=== PATIENT | female | born 1960 | race Caucasian/White ===

== ENCOUNTER 2016-09-06 10:24 | Emergency (ER) | payer OTHER ==
[2016-09-06 11:02] VITALS: BP 159/80
--- NOTE | 2016-09-06 12:10 | UC ---
Lower Extremity/Ankle HPI - HPI Summary HPI Summary: 56 female presents with complaints of left foot pain and rash that has been ongoing for the past month. Patient has had left foot discomfort since her fall 1 year ago that has increased after walking strenuously while traveling [place]. Patient states she was using the [place] equivalent to Asper cream on her foot to help with the discomfort. She states she was not applying it appropriately and developed a rash 3 days ago. Patient was using it multiple times daily in significant amounts. Patient complains today of rash being red, itchy, pustules with associated swelling. Denies fever/chills. Pain in foot is on the lateral and top side that is worse with walking. Is able to bear weight. A few day ago she did hear a popping sound in her foot. Denies any other complaints, ankl/ knee pain, numbness/tingling and discharge at this time. - History of Current Complaint Chief Complaint: UCLowerExtremity Stated Complaint: RASH FOOT INJURY Hx Obtained From: Patient ?: No Onset/Duration: Sudden Onset, Lasting Weeks - months, Still Present, Worse Since Severity Initially: Mild Severity Currently: Moderate Pain Intensity: 6 Pain Scale Used: 0-10 Numeric Aggravating Factor(s): Standing, Ambulation Alleviating Factor(s): Rest Able to Bear Weight: Yes - Allergies/Home Medications Allergies/Adverse Reactions: Allergies Allergy/AdvReac Type Severity Reaction Status Date / Time novocaine Allergy Severe Anaphylatic Uncoded 07/14/12 09:02 Shock tincture of benzoin Allergy Severe Rash Uncoded 07/14/12 09:02 codeine Allergy Unknown Unknown Uncoded 07/14/12 09:03 Reaction Details PMH/Surg Hx/FS Hx/Imm Hx Endocrine History Of: Denies: Diabetes, Thyroid Disease Cardiovascular History Of: Reports: Hypertension Denies: Cardiac Disorders Respiratory History Of: Denies: COPD, Asthma GI/ History Of: Denies: Ulcer - Surgical History Surgical History: Yes Surgery Procedure, Year, and Place: supra cervical hysterectomy 2003. scheduled for laproscopy for bilat collaped fallopian tubes/ovaries 07/18/12 - Family History Known Family History: Positive: Hypertension - Social History Alcohol Use: None Substance Use Type: None Smoking Status (MU): Never Smoked Tobacco - Immunization History Vaccination Up to Date: Yes Review of Systems Constitutional: Negative Skin: Rash Respiratory: Negative Cardiovascular: Negative Gastrointestinal: Negative Motor: Negative Neurovascular: Negative Musculoskeletal: Arthralgia, Edema, Myalgia Neurological: Negative All Other Systems Reviewed And Are Negative: Yes Physical Exam Triage Information Reviewed: Yes Appearance: Well-Appearing, No Pain Distress, Well-Nourished Vital Signs: Initial Vital Signs Temp 98 F 09/06/16 10:55 Pulse 78 09/06/16 10:55 Resp 18 09/06/16 10:55 BP 159/80 09/06/16 10:55 Pulse Ox 99 09/06/16 10:55 BP elevated. Patient was encouraged to follow up with PCP within the next 2 weeks. Patient already being treated for HTN. Vital Signs Reviewed: Yes Eyes: Positive: Conjunctiva Clear ENT: Positive: Normal ENT inspection, Hearing grossly normal Neck: Positive: Supple, Nontender, No Lymphadenopathy Respiratory: Positive: Chest non-tender, Lungs clear, Normal breath sounds, No respiratory distress, No accessory muscle use. Negative: Crackles, Rhonchi, Stridor, Wheezing Cardiovascular: Positive: RRR, No Murmur, Pulses Normal - 2+ pedal b/l, Brisk Capillary Refill Musculoskeletal: Positive: Strength Intact, ROM Intact, Edema @ - left foot 1+ minimal, no pitting, pain on palpation of lateral foot and anterior top of foot throughout. Over ATFL tenderness, Other: - negative santiago test, achilles tendon intact. no open sore or wounds, no crepitus, step off or obvious deformity. Neurological Exam: Normal Neurological: Positive: Alert, Muscle Tone Normal - sensation intact Psychological Exam: Normal Skin: Positive: rashes - erythematous, raised rash resembling irritation resembling a burn/versus uritcaria, pustular areas only overing top anterior portion of foot wear topical cream was applied. no discharge, no sign of infectious etiology, no concern for emmy or fungal infection. bottom of foot and toes normal skin exam. Diagnostics - Radiology left foot x-ray Xray Interpretation: No Acute Changes - There are no acute bony findings. The articular relationships are maintained. The soft tissues are normal. There is a plantar calcaneal spur. Radiology Interpretation Completed By: Radiologist Lower Extremity Course/Dx - Course Course Of Treatment: x-ray obtained to rule out any fractures or arthritis in foot and was negative. patient was told to stop using topical "Asper-like" cream on foot. Keep clean and dry. Benedryl and vasoline. Take NSAID for foot pain tendonitits/sprain. Offerend brace however patient stated she has one. Follow up with PCP for further imagining. Apply cool compresses on foot however not directly on skin. Aware of worsening signs and symptoms. Rest and elevate foot. Recheck BP with PCP within 2 weeks - Differential Dx/Diagnosis Differential Diagnosis/HQI/PQRI: Arthritis, Burn, Cellulitis, Compartment Syndrome, Contusion, Dislocation, Fracture (Closed), Gout, Sprain, Strain, Tendonitis, Other Provider Diagnoses: uritcaria reaction to topical cream, left foot pain, left foot sprain Discharge - Discharge Plan Condition: Stable Disposition: HOME Patient Education Materials: Urticaria (ED), Tendinitis (ED) Referrals: Puja Little MD [Primary Care Provider] - Additional Instructions: Stop applying topical creams on your foot. Let air out, keep clean and dry. Try taking Benedryl at bedtime to help with swelling and rash. Take naproxen for the next 5-7 days for the foot pain and inflammation. Rest and elevate your foot. Cool compresses not directly on the skin, over a sock or towel. Follow up with your primary care provider also to re-check BP within 2 weeks. If symptoms worsen or do not improve please seek medical attention or return here.
--- NOTE | 2016-09-06 12:48 | RAD ---
INDICATION: Left foot pain COMPARISON: None TECHNIQUE: AP, lateral, and oblique views were obtained. FINDINGS: There are no acute bony findings. The articular relationships are maintained. The soft tissues are normal. There is a plantar calcaneal spur. IMPRESSION: NO ACUTE BONY CHANGE.
== END 2016-09-06 13:30 | disposition home or self-care (01) ==
LOC: UCEAST 10:24
DX: L50.0 Allergic urticaria (principal); M77.52 Other enthesopathy of left foot and ankle; M79.672 Pain in left foot; I10 Essential (primary) hypertension; Z88.4 Allergy status to anesthetic agent; Z88.5 Allergy status to narcotic agent
CPT/HCPCS: 99211; G0463

== ENCOUNTER 2017-09-23 17:33 | Emergency (ER) | payer OTHER ==
[2017-09-23 17:55] VITALS: BP 152/96
--- NOTE | 2017-09-23 18:13 | UC ---
Skin Complaint HPI - HPI Summary HPI Summary: 57 y/o male presents to the urgent care c/o Tick bite yesterday on top of head 09/20/17. Left upper arm bit yesterday, pulled off. - History of Current Complaint Chief Complaint: UCLowerExtremity Time Seen by Provider: 09/23/17 18:11 Stated Complaint: TICK BITE Pain Intensity: 0 - Allergy/Home Medications Allergies/Adverse Reactions: Allergies Allergy/AdvReac Type Severity Reaction Status Date / Time novocaine Allergy Severe Anaphylatic Uncoded 09/23/17 17:55 Shock tincture of benzoin Allergy Severe Rash Uncoded 09/23/17 17:55 codeine Allergy Unknown Unknown Uncoded 09/23/17 17:55 Reaction Details Home Medications: Home Medications Hydrochlorothiazide TAB* [Hydrodiuril TAB*] 25 mg PO DAILY 09/23/17 [History Confirmed 09/23/17] PMH/Surg Hx/FS Hx/Imm Hx - Surgical History Surgical History: Yes Surgery Procedure, Year, and Place: supra cervical hysterectomy 2003. scheduled for laproscopy for bilat collaped fallopian tubes/ovaries 07/18/12 - Family History Known Family History: Positive: Hypertension - Social History Alcohol Use: None Substance Use Type: None Smoking Status (MU): Never Smoked Tobacco - Immunization History Vaccination Up to Date: Yes Physical Exam Vital Signs: Initial Vital Signs Temp 98.3 F 09/23/17 17:47 Pulse 81 09/23/17 17:47 Resp 18 09/23/17 17:47 BP 152/96 09/23/17 17:47 Pulse Ox 99 09/23/17 17:47 Discharge - Discharge Plan Referrals: Puja Little MD [Primary Care Provider] -
[2017-09-23] MEDS ORDERED: DOXYcycline CAP(*) 100 MG PO ONE (18:37)
== END 2017-09-23 18:58 | disposition home or self-care (01) ==
LOC: UCEAST 17:33
DX: S00.06XA Insect bite (nonvenomous) of scalp, initial encounter (principal); S40.862A Insect bite (nonvenomous) of left upper arm, initial encounter; W57.XXXA Bitten or stung by nonvenomous insect and other nonvenomous arthropods, initial encounter; Y93.9 Activity, unspecified; Y92.9 Unspecified place or not applicable; Z88.4 Allergy status to anesthetic agent; Z88.5 Allergy status to narcotic agent; Z82.49 Family history of ischemic heart disease and other diseases of the circulatory system
CPT/HCPCS: 99212; A9270-GY; G0463